=== PATIENT | female | born 1955 | race Hispanic/Latino ===

== ENCOUNTER 2017-05-10 19:22 | Emergency (ER) | payer OTHER, SELFPAY ==
[2017-05-10] MEDS ORDERED: CEFTRIAXONE SODIUM 1 GM ONE (20:42)
[2017-05-10] MEDS ORDERED: KETOROLAC TROMETHAMINE 30MG/ML ONE (20:42)
[2017-05-10] MEDS ORDERED: LIDOCAINE HCL-MPF 1% 2ML VIAL ONE (20:42)
== END 2017-05-10 21:21 | disposition home or self-care (01) ==
LOC: EDH 19:22
DX: J10.00 Influenza due to other identified influenza virus with unspecified type of pneumonia (principal); Z88.2 Allergy status to sulfonamides; Z72.0 Tobacco use
CPT/HCPCS: 71046; 87804 ×2; 96372 ×2; 99285; J0696; J1885; J3490

== ENCOUNTER 2018-09-14 20:51 | Emergency (ER) | payer OTHER, SELFPAY ==
[2018-09-14 21:17] LABS: APPEARANCE,URINE Clear (CLEAR); BILIRUBIN,URINE Negative (NEGATIVE); COLOR,URINE Yellow (YELLOW); GLUCOSE, URINE (UA) Negative (NEGATIVE); KETONES,URINE Negative (NEGATIVE); LEUKOCYTE ESTERASE ,URINE Trace (NEGATIVE); NITRATE,URINE Negative (NEGATIVE); OCCULT BLOOD,URINE Large (NEGATIVE); PROTEIN,URINE Negative (NEGATIVE)
[2018-09-14 21:24] LABS: BASOPHILS % (AUTO) 1.2 % (0.0-5.0); EOSINOPHILS % (AUTO) 0.7 % (0.0-8.0); HEMATOCRIT 41.9 % (36-48); LYMPHOCYTES % (AUTO) 22.3 % (21.0-51.0); MEAN CORPUSCULAR HEMOGLOBIN 28.9 pg (27.0-33.0); MEAN CORPUSCULAR HGB CONC 33.9 g/dL (32.0-36.0); MEAN CORPUSCULAR VOLUME 85.1 fL (79-99); MONOCYTES % (AUTO) 9.3 % (3.0-13.0); NEUTROPHILS % (AUTO) 66.5 % (40.0-77.0); NUCLEATED RED BLOOD CELLS 0.1 % (0.0-0.19); PLATELET COUNT (AUTO) 291 K/uL (130-400); RED BLOOD CELL COUNT(AUTO) 4.92 MIL/uL (4.00-5.50); RED CELL DISTRIBUTION WIDTH 14.1 % (11.0-15.5); WHITE BLOOD COUNT (AUTO) 10.2 K/uL (4.8-10.8)
[2018-09-14] MEDS ORDERED: IPRATROPIUM/ALBUTEROL SULFATE 3 ML SOLUTION IH ONE (21:26)
[2018-09-14 21:31] LABS: RAPID GROUP A STREP NEGATIVE (NEGATIVE)
[2018-09-14 21:36] LABS: BACTERIA,URINE Rare /HPF (None Seen); SQUAMOUS EPITHELIAL CELL,UR 0-2 /HPF (0-2); WBC,URINE 0-1 /HPF (0-1)
[2018-09-14 21:52] LABS: CHLORIDE 99 mmol/L (101-111)
[2018-09-14 21:58] LABS: CARBON DIOXIDE 27 mmol/L (21-32); GLUCOSE,RANDOM 111 mg/dL (70-105); POTASSIUM 3.7 mmol/L (3.5-5.1); SODIUM SERUM 135 mmol/L (136-145); UREA NITROGEN, BLOOD 11 mg/dL (7-18)
[2018-09-14 22:09] LABS: ALANINE AMINOTRANSFERASE 27 U/L (12-78); ALBUMIN 3.3 g/dL (3.5-5.0); ASPARTATE AMINOTRANSFERASE 23 U/L (10-37); BILIRUBIN,TOTAL 0.6 mg/dL (0.2-1.0); CREATINE KINASE, TOTAL 156 U/L (21-232); MYOGLOBIN 58 ng/mL (10-92); TOTAL PROTEIN, SERUM 7.5 g/dL (6.0-8.3); TROPONIN I < 0.04 ng/mL (0.00-0.06)
[2018-09-14 22:10] LABS: GLOMERULAR FILTR. RATE CALC 60 mL/min (>60)
[2018-09-14 22:14] LABS: INR 0.87 (0.85-1.15); PARTIAL THROMBOPLASTIN TIME 30.1 SEC (26.3-35.5); PROTHROMBIN TIME 9.2 SEC (9.6-11.6)
== END 2018-09-14 23:49 | disposition home or self-care (01) ==
LOC: EDH 20:51
DX: R06.00 Dyspnea, unspecified (principal); R06.2 Wheezing; R09.1 Pleurisy; R05 Cough; F41.9 Anxiety disorder, unspecified; Z88.2 Allergy status to sulfonamides; Z72.0 Tobacco use
CPT/HCPCS: 36415; 71045; 80053; 81001; 82550; 83605; 83874; 84484; 85025; 85610; 85730; 87040; 87088; 87804; 87880; 93005; 94640

== ENCOUNTER 2019-11-27 06:14 | Observation (INO) | payer SELFPAY ==
[2019-11-27] VITALS (24 sets, daily range): BP systolic 145–192; BP diastolic 77–101
[2019-11-27] MEDS ORDERED: DEXAMETHASONE SOD PHOSPHATE 10MG/ML 1ML VIAL ONE (07:09)
[2019-11-27] MEDS ORDERED: NEOSTIGMINE 5MG/5ML SYR IV ONE (07:10)
[2019-11-27] MEDS ORDERED: CEFAZOLIN SODIUM 1 GM VIAL ONE ×3 (07:10→14:26)
[2019-11-27] MEDS ORDERED: MIDAZOLAM HCL 1 MG/ML 2ML VIAL ONE (07:10)
[2019-11-27] MEDS ORDERED: FENTANYL CITRATE PF 50 MCG/1 ML 2ML VIAL ONE ×3 (07:11→11:22)
[2019-11-27] MEDS ORDERED: ROPIVACAINE 0.5% 5MG/ML 30ML IJ ONE (07:16)
[2019-11-27] MEDS ORDERED: ALBUMIN (HUMAN) 5% 250 ML IV ONE (07:37)
[2019-11-27 08:25] LABS: HEMATOCRIT 39.8 % (36-48); MEAN CORPUSCULAR HEMOGLOBIN 27.9 pg (27.0-33.0); MEAN CORPUSCULAR HGB CONC 32.4 g/dL (32.0-36.0); RED BLOOD CELL COUNT(AUTO) 4.63 MIL/uL (4.00-5.50); WHITE BLOOD COUNT (AUTO) 6.8 K/uL (4.8-10.8)
[2019-11-27 08:28] LABS: CREATININE 0.9 mg/dL (0.5-1.5); POTASSIUM 3.7 mmol/L (3.5-5.1)
[2019-11-27 08:29] LABS: INR 0.87 (0.85-1.15); PROTHROMBIN TIME 9.4 SEC (9.6-11.6)
[2019-11-27] MEDS ORDERED: PROPOFOL 10 MG/ML 20ML VIAL IV ONE (08:55)
[2019-11-27] MEDS ORDERED: SUCCINYLCHOLINE CHLORIDE 20 MG/ML 10 ML VIAL ONE (11:08)
[2019-11-27] MEDS ORDERED: CEPH500B PO (11:39)
[2019-11-27] MEDS ORDERED: AEC81 PO (11:39)
--- NOTE | 2019-11-27 13:10 | NUR ---
PATIENT ARRIVED TO DAY PATIENT VIA STRETCHER BY XAVIER LUCIANO,GENEVA AND GENEVA PATINO. PATIENT [id number], DENIES ANY PAIN AT THIS TIME. DRESSINGS X2 TO LEFT UPPER SHOULDER AND LEFT ARM. LEFT ARM IN SLING. PATIENT STATES THAT HER ARM FEELS NUMB.
[2019-11-27] MEDS ORDERED: HYDRALAZINE HCL 20 MG/ML VIAL ONE (13:25)
--- NOTE | 2019-11-27 14:52 | NUR ---
DISCHARGE INSTRUCTIONS PROVIDED TO PATIENT'S DAUGHTER (LARY BROTHERS). FOLLOW UP APPOINTMENT PROVIDED AND DR WETZEL INSTRUCTIONS SHEET PROVIDED TO PATIENT. INFORMED PATIENT THAT PRESCRIPTIONS WERE CALLED INTO PHARMACY. ALL QUESTIONS/CONCERNS ADDRESSED.
--- NOTE | 2019-11-27 15:15 | NUR ---
PATIENT DISCHARGED FROM FACILITY VIA WHEELCHAIR BY ANSLEY GENTILE. PATIENT ASSISTED INTO PRIVATE VEHICLE DRIVEN BY FAMILY.
== END 2019-11-27 15:15 | disposition home or self-care (01) ==
LOC: EDH 06:14 → EDHIP 06:15
PROVIDERS: ADMIT Orthopaedic Surgery; ATTEND Orthopaedic Surgery
DX: S42.302A Unspecified fracture of shaft of humerus, left arm, initial encounter for closed fracture (principal); J45.909 Unspecified asthma, uncomplicated; F41.9 Anxiety disorder, unspecified; Z87.891 Personal history of nicotine dependence; Z98.51 Tubal ligation status; Z79.899 Other long term (current) drug therapy; Z88.1 Allergy status to other antibiotic agents; Z88.2 Allergy status to sulfonamides; Z91.018 Allergy to other foods; W10.9XXA Fall (on) (from) unspecified stairs and steps, initial encounter; Y93.89 Activity, other specified; Y92.009 Unspecified place in unspecified non-institutional (private) residence as the place of occurrence of the external cause
CPT/HCPCS: 24516; 36415; 73060; 80048; 85027; 85610; 99284; A4213; A4215; A4221; A4222; A4223; A4600; A4663; A4930 ×2; A6207; C1713 ×4; G0168; G0378 ×3; J0330; J0360; J0690 ×3; J1100; J2250; J2704; J2710; J2795; J3010 ×3; J7030; P9045

== ENCOUNTER 2019-11-28 00:52 | Emergency (ER) | payer SELFPAY ==
[~2019-11-28 00:52] MED LIST: AEC81 PO; CEPH500B PO
[2019-11-28 02:43] LABS: BASOPHILS % (AUTO) 0.1 % (0.0-5.0); HEMATOCRIT 36.4 % (36-48); LYMPHOCYTES % (AUTO) 8.9 % (21.0-51.0); MEAN CORPUSCULAR HEMOGLOBIN 27.9 pg (27.0-33.0); MEAN CORPUSCULAR HGB CONC 32.4 g/dL (32.0-36.0); MEAN CORPUSCULAR VOLUME 86.1 fL (79-99); MONOCYTES % (AUTO) 6.9 % (3.0-13.0); NEUTROPHILS % (AUTO) 83.8 % (40.0-77.0); PLATELET COUNT (AUTO) 323 K/uL (130-400); RED BLOOD CELL COUNT(AUTO) 4.23 MIL/uL (4.00-5.50); RED CELL DISTRIBUTION WIDTH 14.3 % (11.0-15.5); WHITE BLOOD COUNT (AUTO) 12.1 K/uL (4.8-10.8)
[2019-11-28 02:49] LABS: POTASSIUM 4.4 mmol/L (3.5-5.1)
[2019-11-28] MEDS ORDERED: LABETALOL 20 MG/4 ML DISP.SYRIN IV ONE (02:53)
[2019-11-28 03:07] LABS: B-TYPE NATRIURETIC PEPTIDE 165 pg/mL (0-100)
[2019-11-28] MEDS ORDERED: NITROGLYCERIN 1GM/1 INCH PACKET TD ONE (03:46)
[2019-11-28] MEDS ORDERED: ACETAMINOPHEN EXTRA STRENGTH 500 MG TABLET ONE (05:05)
[2019-11-28] MEDS ORDERED: LORAZEPAM 1 MG TABLET ONE (05:06)
[2019-11-28 07:05] LABS: APPEARANCE,URINE Clear (CLEAR); BILIRUBIN,URINE Negative (NEGATIVE); COLOR,URINE Yellow (YELLOW); GLUCOSE, URINE (UA) Negative (NEGATIVE); KETONES,URINE Trace mg/dL (NEGATIVE); LEUKOCYTE ESTERASE ,URINE Negative (NEGATIVE); NITRATE,URINE Negative (NEGATIVE); OCCULT BLOOD,URINE Small (NEGATIVE); PH,URINE 6.5 (5.0-8.0); PROTEIN,URINE Negative (NEGATIVE); UROBILINOGEN,URINE 0.2 mg/dL (0.2-1.0)
[2019-11-28 07:45] LABS: BACTERIA,URINE None Seen /HPF (None Seen); SQUAMOUS EPITHELIAL CELL,UR 0-2 /HPF (0-2); WBC,URINE 0-1 /HPF (0-1)
== END 2019-11-28 08:01 | disposition home or self-care (01) ==
LOC: EDH 00:52
DX: R03.0 Elevated blood-pressure reading, without diagnosis of hypertension (principal); J45.909 Unspecified asthma, uncomplicated; F41.9 Anxiety disorder, unspecified; Z88.1 Allergy status to other antibiotic agents; Z88.2 Allergy status to sulfonamides; Z91.013 Allergy to seafood; Z98.51 Tubal ligation status; Z87.01 Personal history of pneumonia (recurrent)
CPT/HCPCS: 36415; 71045; 80048; 81001; 83880; 85025; 93005; 96374